=== PATIENT | female | born 1985 | race Caucasian/White ===

== ENCOUNTER 2017-05-16 20:52 | Emergency (ER) | payer SELFPAY ==
[~2017-05-16] VITALS: Ht 167.6 cm; Wt 70.0 kg
[2017-05-16 20:55] VITALS: BP 128/89; PULSE 74; RESP 12; TEMP 99.2; O2SAT 99
--- NOTE | 2017-05-16 21:48 | PD ---
HPI . possible tampon for unknown duration Chief Complaint: Foreign Body Time Seen by Provider: 21:48 Travel History International Travel<30 days: No Contact w/Intl Traveler<30days: No Traveled to known affect area: No History of Present Illness HPI 31-year-old female with a past medical history here with possible foreign body in her vagina. Patient says that she might have a tampon stuck in her vagina. She reports that she noticed some vaginal discharge and foul smells and thought a tampon was probably stuck and causing all her issues. She went to an urgent care and was told there seems to be some type of foreign body behind the cervical cause. Per the notes recommendations were to come to the emergency department for antibiotics and possible removal of this foreign body. Patient says that she is not certain if it is a tampon or not. She does not recall losing a tampon. She denies any high risk sexual behaviors and has had the same partner for 12 years. PFSH Past Surgical History Gynecologic Surgery: Yes (LEEP) Social History Alcohol Use: No Tobacco Use: No Substance Use: No Allergies-Medications (Allergen,Severity, Reaction): Coded Allergies: No Known Allergies (Unverified , 05/16/17) Reported Meds & Prescriptions Reported Meds & Active Scripts Active No Active Prescriptions or Reported Medications Review of Systems General / Constitutional: No: Fever Eyes: No: Visual changes HENT: No: Headaches Cardiovascular: No: Chest Pain or Discomfort Respiratory: No: Shortness of Breath Gastrointestinal: No: Abdominal Pain Genitourinary: Positive: Discharge, Other (foul odor), No: Dysuria Musculoskeletal: No: Pain Skin: No Rash Neurologic: No: Weakness Psychiatric: No: Depression Endocrine: No: Polydipsia Hematologic/Lymphatic: No: Easy Bruising Physical Exam Narrative GENERAL: AAO x 3, no acute distress, Well-nourished, well-developed patient. SKIN: Warm and dry. No visible rashes or bruising. HEAD: Normocephalic and atraumatic. EYES: No scleral icterus. No injection or drainage. ENT: No nasal drainage noted. Mucous membranes pink. Airway patent. NECK: Supple, trachea midline. No JVD. CARDIOVASCULAR: Regular rate and rhythm without murmurs, gallops, or rubs. RESPIRATORY: Breath sounds equal bilaterally. No accessory muscle use. No rhonchi or rales. GASTROINTESTINAL: Abdomen soft, non-tender, nondistended. PELVIC: Done by Dr. Feldman, cervical polyp present, also abnormal appearing cervix, mild white discharge without any odor EXTREMITIES: No cyanosis or edema. BACK: No obvious deformity. NEURO: CN II-12 intact, PSYCH: AAO x 3, normal affect. Data Data Last Documented VS Vital Signs Date Time Temp Pulse Resp B/P Pulse Ox O2 Delivery O2 Flow Rate FiO2 05/16/17 21:56 16 05/16/17 20:55 99.2 74 128/89 99 Room Air Orders Ed Urine Pregnancytest Poc (05/16/17 21:58) Gc And Chlamydia Pcr (05/16/17 22:13) Wet Prep Profile (05/16/17 22:13) Urinalysis - C+S If Indicated (05/16/17 22:13) Labs Laboratory Tests Test 05/16/17 22:20 Urine Color YELLOW Urine Turbidity HAZY Urine pH 6.0 Urine Specific [place] 1.036 Urine Protein 30 mg/dL Urine Glucose (UA) NEG mg/dL Urine Ketones NEG mg/dL Urine Occult Blood NEG Urine Nitrite NEG Urine Bilirubin NEG Urine Urobilinogen 2.0 MG/DL Urine Leukocyte Esterase NEG Urine WBC 1 /hpf Urine Squamous Epithelial 5 /hpf Cells Urine Mucus FEW /lpf Microscopic Urinalysis Comment CULT NOT INDICATED Clue Cells (Wet Prep) NONE SEEN Vaginal Trichomonas (Wet Prep) NONE SEEN Vaginal Yeast (Wet Prep) NONE SEEN MDM Medical Decision Making Medical Screen Exam Complete: Yes Emergency Medical Condition: Yes Medical Record Reviewed: Yes Differential Diagnosis foreign body in vagina, gonorrhea, Chlamydia, trichomoniasis, PID, cervical polyp, cervical cancer, BV Narrative Course 31-year-old female here with complaints of vaginal discharge and odor. She also thinks there may be a tampon stuck in her. Pelvic exam was done and there is no foreign body. She does have a small cervical polyp. There is also abnormal appearance of the cervix, we recommend Pap smear. 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 Wet prep and gonorrhea and chlamydia PCR were ordered. Laboratory Tests Test 05/16/17 22:20 Urine Color YELLOW Urine Turbidity HAZY Urine pH 6.0 Urine Specific [place] 1.036 Urine Protein 30 mg/dL Urine Glucose (UA) NEG mg/dL Urine Ketones NEG mg/dL Urine Occult Blood NEG Urine Nitrite NEG Urine Bilirubin NEG Urine Urobilinogen 2.0 MG/DL Urine Leukocyte Esterase NEG Urine WBC 1 /hpf Urine Squamous Epithelial 5 /hpf Cells Urine Mucus FEW /lpf Microscopic Urinalysis Comment CULT NOT INDICATED Clue Cells (Wet Prep) NONE SEEN Vaginal Trichomonas (Wet Prep) NONE SEEN Vaginal Yeast (Wet Prep) NONE SEEN Discuss normal findings with patient. Offered prophylactic treatment for gonorrhea and chlamydia and patient declined. We had a discussion regarding her pelvic exam and that she needs follow-up Pap smear. Patient says she will try to do this as soon as possible. Patient verbalized understanding of instructions, questions were answered, and thanked me for their care. I advised them if their condition worsens, please return to the nearest emergency room for further care. Diagnosis Primary Impression: Vaginal discharge Referrals: Stacey Nagel MD [employer] Patient Instructions: General Instructions Additional Instructions: Please follow-up with a group segment consultant as we discussed. As we discussed, you need a pap smear. This is very important and you should get this done as soon as possible. Pap smears are used to detect cervical cancer. Med/Other Pt SpecificInfo: No Change to Meds Scripts No Active Prescriptions or Reported Meds Disposition: 01 DISCHARGE HOME Condition: Stable Sarah Stacy May 16, 2017 21:48
--- NOTE | 2017-05-16 22:31 | PD ---
Data Data Last Documented VS Vital Signs Date Time Temp Pulse Resp B/P Pulse Ox O2 Delivery O2 Flow Rate FiO2 05/16/17 21:56 16 05/16/17 20:55 99.2 74 128/89 99 Room Air Orders Ed Urine Pregnancytest Poc (05/16/17 21:58) Gc And Chlamydia Pcr (05/16/17 22:13) Wet Prep Profile (05/16/17 22:13) Urinalysis - C+S If Indicated (05/16/17 22:13) MDM Supervised Visit with MAKAYLA: Yes Narrative Course I, Dr. Feldman, have reviewed the advance practice practioner's documentation and am in agreement, met with the patient face to face, made the diagnosis, and the medical decision making was done by me. *My assessment and Findings: 31-year-old female here for possible vaginal foreign body. She's noticed some foul vaginal discharge for the last several days. Seen in urgent care who thought that there was a foreign body in the cervix. Sent here, patient is concerned it may be a tampon but does not recall losing 1. Benign abdominal examination. Pelvic examination reveals W-shaped cervical os with small cervical polyp. There is also slightly violaceous purple /bluish colored tissue at the 9 o'clock position. There is no obvious mass. Patient notes a history of cervical precancer and/or cancer requiring a LEEP approximately 10 years ago. Differential includes BV, Trichomonas, yeast infection, UTI, GC chlamydia or other STI. Will obtain wet prep and vaginal cultures. Regardless patient needs a follow-up with her ELECTRONICS ASSEMBLER as an outpatient for repeat Pap smear as it has been 2 years since her last period Diagnosis Primary Impression: Vaginal discharge Referrals: Stacey Nagel MD Hospital Recruiter Patient Instructions: General Instructions Additional Instruction: Please follow-up with a rig builder as we discussed. It is important that you get a repeat Pap smear to rule out cervical cancer. Scripts No Active Prescriptions or Reported Meds Disposition: 01 DISCHARGE HOME Condition: Stable Gina Feldman MD May 16, 2017 22:31
[2017-05-16 22:32] LABS: BLOOD, URINE NEG (NEG); COMMENT (UR) CULT NOT INDICATED; CULTURE IF INDICATED CULT NOT INDICATED; GLUCOSE,URINE NEG (NEG); KETONE, URINE NEG (NEG); MUCUS URINE FEW /lpf (OCC); NITRITE,URINE NEG (NEG); SQUAMOUS EPITHELIAL CELL URINE 5 /hpf (0-5); URINE COLOR YELLOW (YELLW/STRAW)
[2017-05-17 00:07] LABS: CHLAMYDIA PCR NOT DETECTED (NOT DETECT); NEISSERIA PCR NOT DETECTED (NOT DETECT)
== END 2017-05-16 22:53 | disposition home or self-care (01) ==
LOC: NEPE 20:52
DX: N89.8 Other specified noninflammatory disorders of vagina (principal)
CPT/HCPCS: 81001; 84703; 87210; 87491; 87591; 99284